=== PATIENT | female | born 1985 | race Caucasian/White ===

== ENCOUNTER 2016-12-07 10:31 | Emergency (ER) | payer MEDICAID ==
[2016-12-07 10:41] VITALS: O2SAT 94
--- NOTE | 2016-12-07 10:57 | EDPHY ---
H & P Stated Complaint: Flu like sxs x few days; currently getting chemo for breast CA in [place] Time Seen by Provider: 12/07/16 10:53 HPI/ROS: CHIEF COMPLAINT: fever, flu-like symptoms HISTORY OF PRESENT ILLNESS: 31-year-old female undergoing chemotherapy, last treatment 8 days ago for breast cancer presents with a temperature of 100.5degrees at home. Patient has a 3 day history of nasal congestion, sore throat, body aches. Patient's had similar symptoms last week. Patient reports nausea that is a result of her chemotherapy, no vomiting, no diarrhea. She denies chest pain or shortness of breath. She denies cough. Patient has not taken any Tylenol or ibuprofen. She did not receive a flu shot. REVIEW OF SYSTEMS: A comprehensive 10 point review of systems is otherwise negative aside from elements mentioned in the history of present illness. Source: Patient, Family - Personal History LMP (Females 10-55): Unknown Current Tetanus Diphtheria and Acellular Pertussis (TDAP): Unsure - Medical/Surgical History Other PMH: Breast CA - Social History Smoking Status: Current every day smoker - Physical Exam Exam: General: Alert, nontoxic. ENT: Left tympanic membrane clear, right tympanic membrane obscured with cerumen, external auditory canal, external ear and surrounding soft tissue including over the mastoid unremarkable. Nasopharynx is injected, there is rhinorrhea. Oropharynx with erythema, no edema. There is no exudate. No tonsillar hypertrophy. No asymmetry. The uvula is midline. No elevation of tongue. There is no hoarseness. No drooling, patient has good control of their oral secretions. No trismus. No stridor. Cardiac: Regular rate and rhythm. Respiratory: Lungs clear to auscultation bilaterally. Neurological: no meningismus. Skin: No rashes. Constitutional: Initial Vital Signs Temperature (C) 38 C 12/07/16 10:35 Heart Rate 108 H 12/07/16 10:35 Respiratory Rate 18 12/07/16 10:35 Blood Pressure 120/80 12/07/16 10:35 O2 Sat (%) 94 12/07/16 10:35 O2 Delivery Mode Room Air Allergies/Adverse Reactions: adhesive tape Allergy (Mild, Verified 12/07/16 10:41) skin reaction Home Medications: Medication Instructions Recorded Ado-Trastuzumab Emtansine [Kadcyla] 0 mg IV 12/07/16 Hormone Injection 12/07/16 Metoprolol Succinate [Toprol Xl 200 mg PO DAILY 12/07/16 200 mg] Tamoxifen Citrate [Nolvadex 10 MG 10 mg PO 12/07/16 (*)] Venlafaxine Xr [Effexor Xr 37.5MG 37.5 mg PO 12/07/16 (*)] Medical Decision Making ED Course/Re-evaluation: 1250pm- I spoke with the patients oncologist at [facility] Dr. Nogueira. I reviewed the patient's labs and symptoms. She is comfortable with me discharging the patient home. Patient has a white blood cell count of 6.17, she is not neutropenic, temperature is down to 36.7 after Tylenol and ibuprofen. She was given 1 L of normal saline, urinalysis shows no evidence of infection, chest x-ray is unremarkable, negative influenza, negative rapid strep. Patient is given return precautions, she is to follow up at [facility] as scheduled. - Data Points Laboratory Results: Laboratory Results 12/07/16 11:45 12/07/16 11:45 12/07/16 12/07/16 12/07/16 Unknown 11:53 11:45 WBC RBC Hgb Hct MCV MCH MCHC RDW Plt Count MPV Neut % (Auto) Lymph % (Auto) [place] % (Auto) Eos % (Auto) Baso % (Auto) Nucleat RBC Rel Count Absolute Neuts (auto) Absolute Lymphs (auto) Absolute Monos (auto) Absolute Eos (auto) Absolute Basos (auto) Absolute Nucleated RBC Immature Gran % Immature Gran # VBG Lactic Acid 1.1 mmol/L mmol/L (0.7-2.1) Sodium Potassium Chloride Carbon Dioxide Anion Gap BUN Creatinine Estimated GFR Glucose Calcium Urine Color YELLOW Urine Appearance CLEAR Urine pH 7.0 (5.0-7.5) Ur Specific [place] 1.014 (1.002-1.030) Urine Protein NEGATIVE (NEGATIVE) Urine Ketones NEGATIVE (NEGATIVE) Urine Blood NEGATIVE (NEGATIVE) Urine Nitrate NEGATIVE (NEGATIVE) Urine Bilirubin NEGATIVE (NEGATIVE) Urine Urobilinogen NEGATIVE EU EU (0.2-1.0) Ur Leukocyte Esterase NEGATIVE (NEGATIVE) Ur Culture Indicated? NOT INDICATED (NI) Urine Glucose NEGATIVE (NEGATIVE) Influenza Typ A,B (DFA) Group A Strep Screen Group A Strep DNA Pending 12/07/16 12/07/16 12/07/16 11:45 11:45 11:25 WBC 6.17 10^3/uL 10^3/uL (3.80-9.50) RBC 3.70 10^6/uL L 10^6/uL (4.18-5.33) Hgb 11.3 g/dL L g/dL (12.6-16.3) Hct 32.9 % L % (38.0-47.0) MCV 88.9 fL fL (81.5-99.8) MCH 30.5 pg pg (27.9-34.1) MCHC 34.3 g/dL g/dL (32.4-36.7) RDW 12.9 % % (11.5-15.2) Plt Count 188 10^3/uL 10^3/uL (150-400) MPV 10.0 fL fL (8.7-11.7) Neut % (Auto) 74.6 % H % (39.3-74.2) Lymph % (Auto) 10.5 % L % (15.0-45.0) [place] % (Auto) 11.8 % % (4.5-13.0) Eos % (Auto) 1.6 % % (0.6-7.6) Baso % (Auto) 1.0 % % (0.3-1.7) Nucleat RBC Rel Count 0.0 % % (0.0-0.2) Absolute Neuts (auto) 4.60 10^3/uL 10^3/uL (1.70-6.50) Absolute Lymphs (auto) 0.65 10^3/uL L 10^3/uL (1.00-3.00) Absolute Monos (auto) 0.73 10^3/uL 10^3/uL (0.30-0.80) Absolute Eos (auto) 0.10 10^3/uL 10^3/uL (0.03-0.40) Absolute Basos (auto) 0.06 10^3/uL 10^3/uL (0.02-0.10) Absolute Nucleated RBC 0.00 10^3/uL 10^3/uL (0-0.01) Immature Gran % 0.5 % % (0.0-1.1) Immature Gran # 0.03 10^3/uL 10^3/uL (0.00-0.10) VBG Lactic Acid Sodium 138 mEq/L mEq/L (134-144) Potassium 3.9 mEq/L mEq/L (3.5-5.2) Chloride 105 mEq/L mEq/L (97-110) Carbon Dioxide 25 mEq/l mEq/l (22-31) Anion Gap 8 mEq/L mEq/L (8-16) BUN 10 mg/dL mg/dL (7-23) Creatinine 0.6 mg/dL mg/dL (0.6-1.0) Estimated GFR > 60 Glucose 84 mg/dL mg/dL (70-100) Calcium 9.1 mg/dL mg/dL (8.5-10.4) Urine Color Urine Appearance Urine pH Ur Specific [place] Urine Protein Urine Ketones Urine Blood Urine Nitrate Urine Bilirubin Urine Urobilinogen Ur Leukocyte Esterase Ur Culture Indicated? Urine Glucose Influenza Typ A,B (DFA) Group A Strep Screen NEGATIVE (NEGATIVE) Group A Strep DNA 12/07/16 10:40 WBC RBC Hgb Hct MCV MCH MCHC RDW Plt Count MPV Neut % (Auto) Lymph % (Auto) [place] % (Auto) Eos % (Auto) Baso % (Auto) Nucleat RBC Rel Count Absolute Neuts (auto) Absolute Lymphs (auto) Absolute Monos (auto) Absolute Eos (auto) Absolute Basos (auto) Absolute Nucleated RBC Immature Gran % Immature Gran # VBG Lactic Acid Sodium Potassium Chloride Carbon Dioxide Anion Gap BUN Creatinine Estimated GFR Glucose Calcium Urine Color Urine Appearance Urine pH Ur Specific [place] Urine Protein Urine Ketones Urine Blood Urine Nitrate Urine Bilirubin Urine Urobilinogen Ur Leukocyte Esterase Ur Culture Indicated? Urine Glucose Influenza Typ A,B (DFA) NEGATIVE FOR FLU (NEGATIVE) Group A Strep Screen Group A Strep DNA Medications Given: Discontinued Medications Acetaminophen (Tylenol) 650 mg PO EDNOW ONE Stop: 12/07/16 11:15 Last Admin: 12/07/16 11:17 Dose: 650 mg Sodium Chloride (Ns) 1,000 mls @ 0 mls/hr IV ONCE ONE PRN Reason: Wide Open Stop: 12/07/16 12:30 Last Admin: 12/07/16 12:31 Dose: 1,000 mls Ibuprofen (Motrin) 600 mg PO EDNOW ONE Stop: 12/07/16 11:15 Last Admin: 12/07/16 11:17 Dose: 600 mg Departure - Departure Disposition: Home, Routine, Self-Care Clinical Impression: Viral syndrome Condition: Good Instructions: Viral Syndrome (ED) Additional Instructions: Drink plenty of fluids, take 650 mg of Tylenol every 8 hours alternating with 600 mg of ibuprofen every 8 hours. Humidifier at night, hot steam showers, you can take [id number] Mucinex and Sudafed to help with your symptoms. Return to the emergency department for worsening symptoms, new symptoms or concerns. Follow-up with your oncologist at [facility] as scheduled. Referrals: NONE *PRIMARY CARE P,. [Primary Care Provider] - As per Instructions
[2016-12-07] MEDS ORDERED: IBUPROFEN 600 MG TAB PO ONE (11:14)
[2016-12-07] MEDS ORDERED: ACETAMINOPHEN 325 MG TAB PO ONE (11:14)
[2016-12-07 12:02] LABS: % IMMATURE GRANULYOCYTES 0.5 % (0.0-1.1); ABSOLUTE IMMATURE GRANULOCYTES 0.03 10^3/uL (0.00-0.10); ADD DIFF? NO; ADD MORPH? NO; ADD SCAN? NO; ATYPICAL LYMPHOCYTE FLAG 10 (0-99); FRAGMENT RBC FLAG 0 (0-99); HEMATOCRIT 32.9 % (38.0-47.0); HEMOGLOBIN 11.3 g/dL (12.6-16.3); LEFT SHIFT FLG 0 (0-99); LIPEMIA HEMOLYSIS FLAG 90 (0-99); MEAN CELL HEMOGLOBIN 30.5 pg (27.9-34.1); MEAN CELL HEMOGLOBIN CONCENTR. 34.3 g/dL (32.4-36.7); MEAN CELL VOLUME 88.9 fL (81.5-99.8); PLATELET CLUMPS FLAG 10 (0-99); PLATELET COUNT 188 10^3/uL (150-400); RED CELL DISTRIBUTION WIDTH 12.9 % (11.5-15.2)
[2016-12-07 12:18] LABS: ANION GAP 8 mEq/L (8-16); CALCIUM 9.1 mg/dL (8.5-10.4); CARBON DIOXIDE 25 mEq/l (22-31); CHLORIDE 105 mEq/L (97-110); CREATININE 0.6 mg/dL (0.6-1.0); GLOMERULAR FILTRATION RATE > 60; GLUCOSE 84 mg/dL (70-100); POTASSIUM 3.9 mEq/L (3.5-5.2); SODIUM 138 mEq/L (134-144)
[2016-12-07 12:25] LABS: COLOR YELLOW; LEUKOCYTE ESTERASE,URINE NEGATIVE (NEGATIVE); NITRITE,URINE NEGATIVE (NEGATIVE)
[2016-12-07] MEDS ORDERED: NS 1,000 ML IV ONE (12:29)
[2016-12-07 12:32] VITALS: BP 112/59; PULSE 81; RESP 16; TEMP 98.8
== END 2016-12-07 13:30 | disposition home or self-care (01) ==
DX: B34.9 Viral infection, unspecified (principal); F17.200 Nicotine dependence, unspecified, uncomplicated; Z85.3 Personal history of malignant neoplasm of breast
CPT/HCPCS: 96374